=== PATIENT | female | born 1960 | race African-American/Black ===

== ENCOUNTER 2019-03-14 16:55 | Emergency (ER) | payer MEDICARE, MEDICAID ==
[~2019-03-14] VITALS: Ht 162.6 cm; Wt 136.1 kg
--- NOTE | 2019-03-14 17:26 | NUR ---
ED Nurse Note: Pt has been coughing with greenish mucus x 8 days with bodyache and sorethroat. Pt ahs hx of Asthma and taking HHN at home but symptoms still remain the same. AOx4, VSS. Will cont to monitor.
[2019-03-14] MEDS ORDERED: Albuterol/Ipratropium 3ml neb HHN ONE (17:30)
[2019-03-14] MEDS ORDERED: Albuterol ud Inhalation HHN ONE (17:45)
[2019-03-14 18:00] VITALS: BP 132/79
--- NOTE | 2019-03-14 18:15 | Diagnostic Imaging Report ---
EXAM: XR Chest, 1 View CLINICAL HISTORY: SOB TECHNIQUE: Frontal view of the chest. COMPARISON: No relevant prior studies available. FINDINGS: Lungs: Low lung volumes with bronchovascular crowding. No consolidation, pleural effusion, or pneumothorax. Pleural space: See above. Heart: Unremarkable. No cardiomegaly. Mediastinum: Unremarkable. Bones/joints: Unremarkable. IMPRESSION: 1. Low lung volumes with bronchovascular crowding. 2. Otherwise no acute cardiopulmonary disease. 3. If there is continued concern, recommend PA and lateral chest radiographs.
--- NOTE | 2019-03-14 18:46 | Emergency Room Report ---
History of Present Illness General Chief Complaint: Upper Respiratory Illness Source: Patient, Medical Record (Jolene Cota) Present Illness HPI 58-year-old morbidly obese female with history of hypertension, rheumatoid and osteoarthritis all controlled here complaining of 8 days of productive cough with green phlegm. Patient also has history of asthma reports that her asthma has been exacerbated in the past few days. Patient reports that 8 days ago she had 10 out of 10 sore throat and congestion she continues to have sore throat with green mucus coming out of her nose. Denies fever and chills, however complains of body aches. Denies nausea vomiting, abdominal pain. Patient has taken [id number] medication for cough. And has been using her albuterol. Denies chest pain, shortness of breath, palpitation, and all other associated symptoms. Patient is an not a tobacco smoker (Jolene Cota) Allergies: Coded Allergies: PENICILLINS (Verified Allergy, Unknown, 03/14/19) SULFUR DIOXIDE (Verified Allergy, Unknown, 03/14/19) Patient History Past Medical History: see triage record Past Surgical History: unable to obtain Pertinent Family History: none Last Menstrual Period: 2008 Now: No : 1 Para: 1 Immunizations: UTD Reviewed Nursing Documentation: PMH: Agreed; PSxH: Agreed (Jolene Cota) Nursing Documentation-PMH Hx Cardiac Problems: No - RA, Scoliosis Hx Hypertension: Yes Hx Asthma: Yes (Jolene Cota) Review of Systems All Other Systems: negative except mentioned in HPI (Jolene Cota) Physical Exam Vital Signs Date Time Temp Pulse Resp B/P (MAP) Pulse Ox O2 Delivery O2 Flow Rate FiO2 03/14/19 17:14 98.4 98 18 146/93 (110) 98 Room Air 03/14/19 17:45 21 Sp02 EP Interpretation: reviewed, normal General Appearance: normal inspection, alert, GCS 15, mild distress Head: normocephalic, atraumatic Eyes: bilateral eye normal inspection, bilateral eye PERRL ENT: hearing grossly normal, no angioedema, pharyngeal erythema Neck: normal inspection, full range of motion, supple Respiratory: chest non-tender, no rhonchi, no respiratory distress, no retraction, no accessory muscle use, wheezing - Diffuse wheezing Cardiovascular #1: normal inspection, regular rate, rhythm, no edema, no murmur Gastrointestinal: normal inspection, non tender, soft Rectal: deferred Genitourinary: no CVA tenderness Musculoskeletal: normal inspection, back normal Neurologic: normal inspection, alert, oriented x3, responsive Psychiatric: normal inspection, judgement/insight normal, memory normal Skin: normal inspection, normal color, no rash, warm/dry Lymphatic: normal inspection, no adenopathy (Jolene Cota) Medical Decision Making PA Attestation All diagnoses and treatment plans were reviewed and discussed with my supervising physician Dr. Smith (oJlene Cota) Diagnostic Impression: Primary Impression: Bronchitis Additional Impressions: Asthma exacerbation Cardiomegaly ER Course 58-year-old morbidly obese female with history of hypertension, rheumatoid and osteoarthritis all controlled here complaining of 8 days of productive cough with green phlegm. Patient also has history of asthma reports that her asthma has been exacerbated in the past few days. Patient reports that 8 days ago she had 10 out of 10 sore throat and congestion she continues to have sore throat with green mucus coming out of her nose. Denies fever and chills, however complains of body aches. Denies nausea vomiting, abdominal pain. Patient has taken [id number] medication for cough. And has been using her albuterol. Denies chest pain, shortness of breath, palpitation, and all other associated symptoms. Patient is an not a tobacco smoker Ddx considered but are not limited to: bronchitis, PNA, URI viral, bacterial brochitis , asthma exacerbation Vital signs: are WNL, pt. is afebrile H&PE are most consistent with: Bacterial bronchitis and asthma exacerbation, cardiomegaly ORDERS: Chest x-ray, 2 breathing treatments, prednisone 60, prednisone 40, doxycycline, Phenergan with codeine ED INTERVENTIONS: Prednisone 60, 2 breathing treatments DISCHARGE: At this time pt. is stable for d/c to home. Will provide printed patient care instructions, and any necessary prescriptions. Care plan and follow up instructions have been discussed with the patient prior to discharge. Patient reports that azithromycin usually does not work on her as she has penicillin and sulfa allergies due to her being on medication for rheumatoid arthritis and osteoarthritis and already having brittle bones floroquinolone family's cannot be prescribed therefore I wrote for doxycycline. Patient stable at time of discharge to follow-up with her primary care provider she is already aware of her cardiomegaly due to her weight and hypertension however I advised her to be referred to a pottery kiln builder by her primary care provider (Jolene Cota) Chest X-Ray Diagnostic Results Chest X-Ray Diagnostic Results : Chest X-Ray Ordered: Yes # of Views/Limited/Complete: 1 View Indication: Shortness of Breath EP Interpretation: Yes PA Xray: Interpretation reviewed, by supervising MD, and agrees with findings. Interpretation: no consolidation, no effusion, no pneumothorax, other - cardiomegaly Impression: Other - cardiomegaly Electronically Signed by: jolene FONSECA Scribe Text IMPRESSION: 1. Low lung volumes with bronchovascular crowding. 2. Otherwise no acute cardiopulmonary disease. 3. If there is continued concern, recommend PA and lateral chest radiographs. (Jolene Cota) Chest X-Ray Diagnostic Results : Electronically Signed by: Fabiana A documentation of Xray reviewed by me and is accurate, Kenneth Smith MD (Kenneth Smith MD) Last Vital Signs Date Time Temp Pulse Resp B/P (MAP) Pulse Ox O2 Delivery O2 Flow Rate FiO2 03/14/19 18:11 80 20 97 Room Air 21 03/14/19 18:00 98.4 132/79 (Jolene Cota) Disposition: HOME, SELF-CARE Condition: Stable Scripts Prednisone (Prednisone) 20 Mg Tablet 20 MG PO BID for 5 Days, #10 TAB Prov: Jolene Cota 03/14/19 Codeine/Promethazine Hcl* (PROMETHAZINE-CODEINE SYRUP*) 118 Ml Syrup 5 ML ORAL Q8HR PRN for For Cough, #60 ML 0 Refills Prov: Jolene Cota 03/14/19 Doxycycline Hyclate (DOXYCYCLINE HYCLATE) 100 Mg Tablet 100 MG PO BID for 7 Days, #14 TAB Prov: Jolene Cota 03/14/19 Patient Instructions: Acute Bronchitis, [id number], Asthma, Adult, Easy-to- Read Additional Instructions: Follow-up with the primary care provider take medication as directed see your primary doctor for referral to pottery kiln builder even though you have had cardiomegaly in the past Jolene Cota Mar 14, 2019 18:46 Kenneth Smith MD Mar 15, 2019 04:27
[2019-03-14] MEDS ORDERED: PREDNISONE20 M1 PO (18:49)
[2019-03-14] MEDS ORDERED: DOXYCYCLINE HY100 M6 PO (18:49)
[2019-03-14] MEDS ORDERED: PROMETHAZINE-C118 M1 ORAL (18:49)
[2019-03-14 19:03] VITALS: BP 123/79
--- NOTE | 2019-03-14 19:03 | NUR ---
ER DISCHARGE NOTE: Patient is cleared to be discharged per ERMD, pt is aox4, on room air, with stable vital signs. pt was given dc and prescription instructions, pt was able to verbalize understanding, pt id band removed. pt is able to ambulate with steady gait. pt took all belongings.
== END 2019-03-14 19:03 | disposition home or self-care (01) ==
LOC: EMR 17:55
DX: J40 Bronchitis, not specified as acute or chronic (principal); J45.901 Unspecified asthma with (acute) exacerbation; I51.7 Cardiomegaly; I10 Essential (primary) hypertension; M06.9 Rheumatoid arthritis, unspecified; M41.9 Scoliosis, unspecified; Z88.0 Allergy status to penicillin; Z88.2 Allergy status to sulfonamides
CPT/HCPCS: 71045; 94640; 94664; 99284; J7512; J7620

== ENCOUNTER 2019-06-12 08:55 | Emergency (ER) | payer MEDICARE, MEDICAID ==
[~2019-06-12] VITALS: Ht 157.5 cm; Wt 133.8 kg
[~2019-06-12 08:55] MED LIST: DOXYCYCLINE HY100 M6 PO; PREDNISONE20 M1 PO; PROMETHAZINE-C118 M1 ORAL
[2019-06-12] MEDS ORDERED: CATAPRES0.2 MG ORAL (09:03)
[2019-06-12] MEDS ORDERED: CARISOPRODOL350 MG ORAL (09:03)
[2019-06-12] MEDS ORDERED: CATAPRES0.1 MG ORAL (09:03)
[2019-06-12] MEDS ORDERED: NORCO 7.5-3251 EACH ORAL (09:03)
[2019-06-12 09:15] VITALS: BP 153/87
[2019-06-12] MEDS ORDERED: Acetaminophen 500mg (ES) tab ORAL ONE (09:15)
[2019-06-12] MEDS: Naproxen 500mg tab ORAL ONE ×2 (09:19→09:25)
[2019-06-12] MEDS ORDERED: LIDODERM700 M1 TOPIC (09:23)
[2019-06-12] MEDS ORDERED: ROBAXIN-750750 MG PO (09:23)
[2019-06-12] MEDS ORDERED: NAPROXEN250 MG ORAL (09:23)
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
--- NOTE | 2019-06-12 09:26 | NUR ---
ED Nurse Note: jarrell ronquillo done pt refused naprosen but took tylenol. pt on cell phone speaking in clear full sentences.
[2019-06-12 10:07] VITALS: BP 153/87
--- NOTE | 2019-06-12 10:13 | NUR ---
ED Nurse Note: Pt cleared by health care Provider for discharge. DC instructions/prescription was given and explained to pt and verbalized understanding of teachings. All medical deviecs such as ID band removed. Pt is AAO x4, ambulatory and left with all personal belongings.
== END 2019-06-12 09:50 | disposition home or self-care (01) ==
LOC: EMR 09:25
DX: M54.5 Low back pain (principal); M54.6 Pain in thoracic spine; T14.8XXA Other injury of unspecified body region, initial encounter; V43.52XA Car driver injured in collision with other type car in traffic accident, initial encounter; Y92.410 Unspecified street and highway as the place of occurrence of the external cause; Z88.0 Allergy status to penicillin; Z88.8 Allergy status to other drugs, medicaments and biological substances; I10 Essential (primary) hypertension; M06.9 Rheumatoid arthritis, unspecified; M41.9 Scoliosis, unspecified
CPT/HCPCS: 99282